=== PATIENT | female | born 2000 | race African-American/Black ===

== ENCOUNTER 2022-05-09 11:33 | Inpatient (IN) ==
[2022-05-09] MEDS ORDERED: LACTATED RINGERS 1,000 ML IV ONE (12:34)
[2022-05-09 13:44] LABS: Basophils % 0.3 % (0.0-0.8); Eosinophils # 0.3 10*3/uL (0.0-0.87); Eosinophils % 4.1 % (0.00-10.9); Hematocrit 33.5 VOL% (35.7-47.0); Hemoglobin 10.7 GM/DL (12.0-16.0); Immature Granulocytes % 0.6 %; Immature Granulocytes Absolute 0.04 #; Lymphocytes # 2.2 10*3/uL (1.4-4.0); Lymphocytes % 32.9 % (21.3-54.2); Mean Corpuscular HGB Conc 31.9 GM/DL (32-36); Mean Corpuscular Volume 79.4 FL (87-102); Mean Platelet Volume 11.3 FL (9.6-12.0); Monocytes # 0.5 10*3/uL (0.11-0.8); Monocytes % 7.5 % (1.7-12.7); Neutrophils % 54.6 % (38.7-73.9); Platelet Count 320 T/CUMM (130-400); Red Blood Count 4.22 MC/CUMM (3.8-5.5); Red Cell Distribution Width 18.2 % (9.3-17.3); White Blood Count 6.78 T/CUMM (4-12)
[2022-05-09 14:01] LABS: INR 0.9; PT Patient Result 10.2 SECS (10.1-12.1); Partial Thromboplastin Time 25.2 SECS (23.7-32.9)
[2022-05-09 14:06] LABS: Alanine Aminotransferase 26 U/L (13-56); Albumin 2.5 G/DL (3.4-5.0); Alkaline Phosphatase 195 U/L (45-117); Aspartate Amino Transferase 22 U/L (0-37); Bilirubin,Direct < 0.100 MG/DL (0.0-0.20); Bilirubin,Total < 0.39 MG/DL (0.20-1.00); Blood Urea Nitrogen 9 MG/DL (7-18); Calcium 8.9 MG/DL (8.5-10.1); Carbon Dioxide 21 MMOL/L (21-32); Chloride 110 MMOL/L (98-107); Glucose 78 MG/DL (74-106); Osmolality,Calculated 270.8 MOS/KG (273-304); Potassium 3.7 MMOL/L (3.5-5.1); Sodium 137 MMOL/L (136-145); Total Protein 7.3 G/DL (6.4-8.2); Uric Acid 5.7 MG/DL (2.6-6.0)
[2022-05-09] MEDS ORDERED: ceFAZolin 3,000 MG in SYRINGE 1 EACH IV ONE (14:31)
[2022-05-09] MEDS ORDERED: OXYTOCIN/LR 20 UNIT/1,000 ML BAG IV ONE ×2 (14:31→17:35)
[2022-05-09] MEDS ORDERED: CARBOPROST TROMETHAMINE 250 MCG/ML AMP IM PRN (14:31)
[2022-05-09] MEDS ORDERED: miSOPROStoL 200 MCG TABLET RECTAL PRN (14:31)
[2022-05-09] MEDS ORDERED: FAMOTIDINE 20 MG/2 ML VIAL IV ONE (14:31)
[2022-05-09] MEDS ORDERED: TRANEXAMIC ACID 1,000 MG in SODIUM CHLORIDE 0.9% 100 ML IV PRN (14:31)
[2022-05-09] MEDS ORDERED: CITRIC ACID/SODIUM CITRATE 30 ML UDCUP PO ONE (14:31)
[2022-05-09] MEDS ORDERED: OXYTOCIN 10 UNIT/ML VIAL IM ONE (14:34)
[2022-05-09] MEDS ORDERED: OXYTOCIN/LR 30 UNIT/1,000 ML BAG IV ONE (14:35)
[2022-05-09] MEDS ORDERED: KETOROLAC 30 MG/1 ML VIAL ONE (14:37)
[2022-05-09] MEDS ORDERED: buprenorphine HCL 0.3 MG/ML VIAL ONE (14:37)
[2022-05-09] MEDS ORDERED: ACETAMINOPHEN INJ 1,000 MG/100 ML VIAL IV ONE (14:37)
[2022-05-09] MEDS ORDERED: ONDANSETRON 4 MG/2 ML VIAL ONE (14:37)
[2022-05-09] MEDS ORDERED: DEXAMETHASONE 4 MG/1 ML VIAL ONE (14:37)
[2022-05-09 14:50] LABS: Urine Appearance Clear (Clear); Urine Color Yellow (Yellow)
[2022-05-09 14:51] LABS: Bilirubin,Urine Negative (Negative); Blood, Urine Negative (Negative); Glucose,Urine (UA) Negative (Negative); Ketones,Urine 15 mg/dL (Negative); Nitrite,Urine Negative (Negative); Protein,Urine Negative (Negative); Urine Specific Gravity 1.015 (1.001-1.035); Urine Urobilinogen 0.2 eU/dL (<2.0)
[2022-05-09 14:52] LABS: Mucus,Urine Occasional /LPF (Occasional); RBC,Urine 2 /HPF (0-4); Squamous Epithelial Cell,Urine Occasional /HPF (0-10)
[2022-05-09] MEDS ORDERED: LACTATED RINGERS 1,000 ML IV SCH ×2 (15:00→18:00)
[2022-05-09 15:08] LABS: Protein/Creatinine Ratio,Urine 0.3 RATIO
[2022-05-09] MEDS ORDERED: PHENYLEPHRINE 1 MG/10 ML SYRINGE IV ONE (16:01)
[2022-05-09] MEDS ORDERED: PHENYLEPHRINE 10 MG/1 ML VIAL IV ONE (16:07)
[2022-05-09] MEDS ORDERED: SODIUM CHLORIDE 0.9% 100 ML IV ONE (16:08)
[2022-05-09 16:26] LABS: Cord Venous Blood HCO3 20.7 MMOL/L; Cord Venous Blood PCO2 43.3 MMHG; Cord Venous Blood PO2 27.7
[2022-05-09 16:29] LABS: Bilirubin,Urine Negative (Negative); Blood, Urine Negative (Negative); Glucose,Urine (UA) Negative (Negative); Ketones,Urine 80 mg/dL (Negative); Nitrite,Urine Negative (Negative); Protein,Urine 30 mg/dL (Negative); Urine Appearance Clear (Clear); Urine Color Yellow (Yellow); Urine Urobilinogen 0.2 eU/dL (<2.0)
[2022-05-09 16:30] LABS: Mucus,Urine Occasional /LPF (Occasional); RBC,Urine 1 /HPF (0-4); Squamous Epithelial Cell,Urine Occasional /HPF (0-10)
[2022-05-09] MEDS ORDERED: MAGNESIUM HYDROXIDE SUSP 30 ML UDCUP PO PRN (17:35)
[2022-05-09] MEDS ORDERED: RHO(D) IMMUNE GLOBULIN 300 MCG SYRINGE IM ONE (17:35)
[2022-05-09] MEDS ORDERED: SIMETHICONE CHEW 80 MG TABLET PO PRN (17:35)
[2022-05-09] MEDS ORDERED: ACETAMINOPHEN 325 MG TABLET PO PRN (17:35)
[2022-05-09] MEDS ORDERED: ONDANSETRON 4 MG/2 ML VIAL IV PRN (17:35)
[2022-05-09] MEDS ORDERED: ACETAMINOPHEN 500 MG TABLET PO SCH (22:30)
[2022-05-09] MEDS ORDERED: KETOROLAC 30 MG/1 ML VIAL IV SCH ×2 (22:30→23:00)
[2022-05-09] MEDS: DOCUSATE SODIUM 100 MG CAPSULE PO SCH (22:44)
[2022-05-09] MEDS: KETOROLAC 30 MG/1 ML VIAL IV SCH (22:45)
[2022-05-09] MEDS: ACETAMINOPHEN 500 MG TABLET PO SCH (22:45)
[2022-05-10 00:44] LABS: Basophils % 0.2 % (0.0-0.8); Eosinophils % 0.1 % (0.00-10.9); Hematocrit 26.6 VOL% (35.7-47.0); Hemoglobin 8.6 GM/DL (12.0-16.0); Immature Granulocytes % 0.7 %; Immature Granulocytes Absolute 0.08 #; Lymphocytes # 1.9 10*3/uL (1.4-4.0); Lymphocytes % 16.5 % (21.3-54.2); Mean Corpuscular HGB Conc 32.3 GM/DL (32-36); Mean Corpuscular Volume 78.5 FL (87-102); Mean Platelet Volume 11.2 FL (9.6-12.0); Monocytes # 0.4 10*3/uL (0.11-0.8); Monocytes % 3.2 % (1.7-12.7); Neutrophils % 79.3 % (38.7-73.9); Platelet Count 283 T/CUMM (130-400); Red Blood Count 3.39 MC/CUMM (3.8-5.5); Red Cell Distribution Width 18.1 % (9.3-17.3); White Blood Count 11.42 T/CUMM (4-12)
[2022-05-10] MEDS: KETOROLAC 30 MG/1 ML VIAL IV SCH ×2 (06:00→13:59)
[2022-05-10] MEDS: ACETAMINOPHEN 500 MG TABLET PO SCH ×2 (06:00→13:59)
[2022-05-10 07:51] LABS: Basophils % 0.2 % (0.0-0.8); Eosinophils % 0.3 % (0.00-10.9); Hematocrit 25.7 VOL% (35.7-47.0); Hemoglobin 8.1 GM/DL (12.0-16.0); Immature Granulocytes % 0.7 %; Immature Granulocytes Absolute 0.08 #; Lymphocytes # 2.6 10*3/uL (1.4-4.0); Lymphocytes % 21.2 % (21.3-54.2); Mean Corpuscular HGB Conc 31.5 GM/DL (32-36); Mean Corpuscular Volume 78.6 FL (87-102); Monocytes # 0.9 10*3/uL (0.11-0.8); Monocytes % 7.7 % (1.7-12.7); Neutrophils % 69.9 % (38.7-73.9); Platelet Count 266 T/CUMM (130-400); Red Blood Count 3.27 MC/CUMM (3.8-5.5); White Blood Count 12.21 T/CUMM (4-12)
[2022-05-10] MEDS: MULTIVITAMIN (PRENATAL) TABLET PO SCH (08:51)
[2022-05-10] MEDS: DOCUSATE SODIUM 100 MG CAPSULE PO SCH ×2 (08:52→21:15)
[2022-05-10] MEDS ORDERED: KETOROLAC 30 MG/1 ML VIAL IV SCH (14:00)
[2022-05-10] MEDS ORDERED: ACETAMINOPHEN 500 MG TABLET PO SCH (14:00)
[2022-05-10] MEDS: IBUPROFEN 800 MG TABLET PO PRN (21:16)
[2022-05-11] MEDS: MULTIVITAMIN (PRENATAL) TABLET PO SCH (09:30)
[2022-05-11] MEDS: DOCUSATE SODIUM 100 MG CAPSULE PO SCH ×2 (09:31→21:12)
[2022-05-11] MEDS: IBUPROFEN 800 MG TABLET PO PRN (12:21)
[2022-05-12 08:02] VITALS: BP 139/81
[2022-05-12] MEDS ORDERED: FERROUS SULFATE 325 MG TABLET PO SCH (09:00)
[2022-05-12] MEDS: MULTIVITAMIN (PRENATAL) TABLET PO SCH (09:04)
[2022-05-12] MEDS: DOCUSATE SODIUM 100 MG CAPSULE PO SCH (09:05)
== END 2022-05-12 12:10 | disposition home or self-care (01) | DRG 788 ==
LOC: N.LDOUT 11:33 → N.LD 11:35 → N.OB 21:49
PROVIDERS: ADMIT Obstetrics & Gynecology; ATTEND Obstetrics & Gynecology
PROC: LDCSECT (ICD-10-PCS; 2022-05-09 15:30)